=== PATIENT | male | born 1985 | race Hispanic/Latino ===

== ENCOUNTER 2019-10-20 | Emergency (ER) | payer SELFPAY ==
[2019-10-20] MEDS ORDERED: AMOXICILLIN875 MG PO (12:23)
== END 2019-10-20 13:30 | disposition home or self-care (01) | DRG 153 ==
DX: J02.9 Acute pharyngitis, unspecified (principal); R50.9 Fever, unspecified; Z53.20 Procedure and treatment not carried out because of patient's decision for unspecified reasons